=== PATIENT | female | born 1950 | race African-American/Black ===

== ENCOUNTER 2017-05-11 10:29 | Observation (INO) | payer MEDICARE, BC ==
[~2017-05-11] VITALS: Ht 167.6 cm; Wt 62.2 kg
[~2017-05-11 10:29] MED LIST: ALLBUTEROL; CARI-277 PO; HYDR-1421
[2017-05-11 11:06] LABS: Basophils # (auto) 0.1 uL; Basophils % (auto) 1.1 % (0.0-2.0); Eosinophils # (auto) 0 uL; Neutrophils # (auto) 4.3 uL
[2017-05-11 11:07] LABS: Hemoglobin 8.5 g/dL (12.2-16.2); Lymphocytes # (auto) 1.7 uL; Lymphocytes % (auto) 25.7 % (10.0-50.0); Mean Corpuscular Hemoglobin 24.7 pg (28.0-32.0); Mean Corpuscular Hgb Conc. 30.3 g/dL (32.0-36.0); Mean Corpuscular Volume 81.4 fL (80.0-100.0); Monocytes # (auto) 0.5 uL; Monocytes % (auto) 8.1 % (0.0-12.0); Neutrophils % (auto) 65.1 % (37.0-80.0); Nucleated Red Blood Cells % 0.2 %; Platelet Count (auto) 512 10^3/uL (140-450); Red Blood Cells 3.44 10^6/uL (4.0-5.20); White Blood Cell 6.6 10^3/uL (4.4-10.8)
[2017-05-11 11:19] LABS: Urine Bacteria FEW /hpf (None Seen); Urine Blood Negative /uL (Negative); Urine Mucus FEW (None Seen); Urine Specific Gravity 1.026 (1.001-1.035); Urine WBC 2 /hpf (0 - 5)
[2017-05-11 11:26] LABS: Albumin 3.8 g/dL (3.4-5.0); BUN/Creatinine Ratio 16.7; Bilirubin, Total 0.2 mg/dL (0.2-1.0); Calcium 8.6 mg/dL (8.5-10.1); Potassium 3.5 mmol/L (3.5-5.1); Total Protein 7.7 g/dL (6.4-8.2)
[2017-05-11] MEDS ORDERED: HYDROcodone-ACET 10/325MG TAB PO ONE (13:45)
[2017-05-11] MEDS ORDERED: SODIUM CHLORIDE 0.9% 1,000 ML IVB ONE (14:23)
[2017-05-11] MEDS ORDERED: cefTRIAXone 1GM/10ml IVPUSH 10 ML IV ONE (14:30)
[2017-05-11 15:02] LABS: INR 1.04 (0.9-1.15); Partial Thromboplastin Time 23.8 sec (22.64-33.71); Prothrombin Time 11.3 sec (9.37-12.3)
[2017-05-11 16:26] VITALS: BP 144/79
== END 2017-05-11 17:12 | disposition home or self-care (01) | DRG 812 ==
LOC: ER 10:29 → OVERFLOW 14:24 → ER 17:03
PROVIDERS: ADMIT Family Medicine; ATTEND Family Medicine
DX: D64.9 Anemia, unspecified (principal); M54.5 Low back pain; N39.0 Urinary tract infection, site not specified; Z90.49 Acquired absence of other specified parts of digestive tract
CPT/HCPCS: 36415; 71046; 80053; 81001; 83735; 85018; 85025; 85610; 85730; 86850; 86900; 86901; 93005; 96361; 96374; 99285; G0378; J7030

== ENCOUNTER 2020-04-03 14:56 | Inpatient (IN) | payer MEDICARE, OTHER ==
[~2020-04-03] VITALS: Ht 167.6 cm; Wt 64.4 kg
[2020-04-03] MEDS ORDERED: SODIUM CHLORIDE 0.9% 1,000 ML IVB ONE (16:00)
[2020-04-03 17:42] LABS: Basophils # (auto) 0 10 ^3/uL (0-0.2); Eosinophils # (auto) 0 10 ^3/uL (0-0.8); Hemoglobin 13.5 g/dL (12.2-16.2); Monocytes # (auto) 0.4 10 ^3/uL (0-1.3); Neutrophils # (auto) 4.2 10 ^3/uL (1.6-8.6)
[2020-04-03 17:44] LABS: Basophils % (auto) 0.5 % (0.0-2.0); Hematocrit 38.8 % (36.0-46.0); Lymphocytes % (auto) 17.3 % (10.0-50.0); Mean Corpuscular Hemoglobin 35.8 pg (28.0-32.0); Mean Corpuscular Hgb Conc. 34.7 g/dL (32.0-36.0); Mean Corpuscular Volume 103.1 fL (80.0-100.0); Monocytes % (auto) 6.6 % (0.0-12.0); Neutrophils % (auto) 75.6 % (37.0-80.0); Nucleated Red Blood Cells % 0.3 %; Platelet Count (auto) 515 10^3/uL (140-450); Red Blood Cells 3.77 10^6/uL (4.0-5.20); Red Cell Distribution Width 14.5 % (11.8-14.3); White Blood Cell 5.6 10^3/uL (4.4-10.8)
[2020-04-03 17:54] LABS: INR 1.08 (0.9-1.15); Partial Thromboplastin Time 27.8 sec (23.0-31.2)
[2020-04-03 18:11] LABS: Albumin 3.4 g/dL (3.4-5.0); Calcium 8.6 mg/dL (8.5-10.1); Magnesium 2.4 mg/dL (1.6-2.6); Potassium 3.8 mmol/L (3.5-5.1)
[2020-04-03 18:14] LABS: BUN/Creatinine Ratio 13.6; Bilirubin, Total 0.4 mg/dL (0.2-1.0); Total Protein 8.3 g/dL (6.4-8.2)
[2020-04-03] MEDS ORDERED: ACETAMINOPHEN 325 MG TAB PO ONE (20:15)
[2020-04-03] MEDS ORDERED: PIPERACILLIN-TAZOB 3.375GM 100 ML IV ONE (20:45)
[2020-04-03] MEDS ORDERED: VANCOMYCIN 1GM/250ML 250 ML IV ONE (20:45)
[2020-04-03] MEDS ORDERED: HYDROcodone-ACET 10/325MG TAB PO ONE (22:00)
[2020-04-03] MEDS: D5W/SOD CHL 0.45% 1,000 ML IV SCH (22:45)
[2020-04-03] MEDS ORDERED: NITROGLYCERIN 0.4 MG SL TAB SL PRN (22:45)
[2020-04-03] MEDS ORDERED: MORPHINE SULF INJ 2 MG/ML SYRINGE 1ML IV PRN (22:45)
[2020-04-03] MEDS ORDERED: HYDROcodone-ACET 5/325MG TAB PO PRN (22:45)
[2020-04-03] MEDS ORDERED: DOCUSATE SOD 100 MG CAP PO PRN (22:45)
[2020-04-03] MEDS ORDERED: ONDANSETRON HCL 4 MG/2 ML VIAL IV PRN (22:45)
[2020-04-03] MEDS ORDERED: ACETAMINOPHEN 325 MG TAB PO PRN (22:45)
[2020-04-04] VITALS (7 sets, daily range): BP systolic 109–130; BP diastolic 68–83
[2020-04-04] MEDS ORDERED: PIPERACILLIN-TAZOB 3.375GM 100 ML IV SCH (06:00)
[2020-04-04 08:05] LABS: Basophils # (auto) 0 10 ^3/uL (0-0.2); Basophils % (auto) 0.1 % (0.0-2.0); Eosinophils # (auto) 0 10 ^3/uL (0-0.8); Lymphocytes % (auto) 19.8 % (10.0-50.0); Mean Corpuscular Hgb Conc. 34.2 g/dL (32.0-36.0); Monocytes # (auto) 0.5 10 ^3/uL (0-1.3); Nucleated Red Blood Cells % 0.2 %
[2020-04-04 08:07] LABS: Hematocrit 35.1 % (36.0-46.0); Mean Corpuscular Hemoglobin 35.4 pg (28.0-32.0); Mean Corpuscular Volume 103.6 fL (80.0-100.0); Monocytes % (auto) 9.8 % (0.0-12.0); Neutrophils # (auto) 3.7 10 ^3/uL (1.6-8.6); Neutrophils % (auto) 70.3 % (37.0-80.0); Platelet Count (auto) 534 10^3/uL (140-450); Red Blood Cells 3.39 10^6/uL (4.0-5.20); Red Cell Distribution Width 14.2 % (11.8-14.3); White Blood Cell 5.2 10^3/uL (4.4-10.8)
[2020-04-04 08:19] LABS: Albumin 3.1 g/dL (3.4-5.0); Calcium 8.3 mg/dL (8.5-10.1)
[2020-04-04 08:22] LABS: Bilirubin, Total 0.5 mg/dL (0.2-1.0); Total Protein 7.4 g/dL (6.4-8.2)
[2020-04-04] MEDS: MULTIPLE VITAMIN TAB PO SCH (09:20)
[2020-04-04] MEDS: ZINC SULFATE 220mg CAP or TAB PO SCH (09:20)
[2020-04-04] MEDS: ASCORBIC ACID 500 MG TAB PO SCH ×2 (09:21→21:42)
[2020-04-04] MEDS: CHOLECALCIFEROL (VITD3) 1,000UNIT=25mCg TAB PO SCH (09:21)
[2020-04-04] MEDS: FAMOTIDINE (10MG/ML) 2ML VL IV SCH ×2 (10:25→21:42)
[2020-04-04] MEDS: HEPARIN SODIUM (PORCINE) 5000 UNITS/ML 1ML VIAL SC SCH ×2 (10:26→21:44)
[2020-04-04] MEDS: AZITHROMYCIN 500MG/ 250ML 250 ML IV SCH (10:26)
[2020-04-04] MEDS ORDERED: CARISOPRODOL 350 MG TAB PO PRN (11:45)
[2020-04-04] MEDS: D5W/SOD CHL 0.45% 1,000 ML IV SCH (12:22)
[2020-04-04] MEDS: GABAPENTIN 300 MG CAP PO SCH ×2 (14:00→21:42)
[2020-04-04] MEDS: metroNIDAZOLE 500MG/100ML 100 ML IV SCH ×2 (14:05→21:42)
[2020-04-04] MEDS: PIPERACILLIN-TAZOB 3.375GM 100 ML IV SCH ×2 (14:52→23:35)
[2020-04-04] MEDS: DexAMETHasone SOD PHOS 10MG/1ML VIAL INJ IV SCH (17:41)
[2020-04-04] MEDS ORDERED: ALBUTEROL SULF HFA 90MCG INH 200DOSE IN SCH (18:00)
[2020-04-04] MEDS: ALBUTEROL SULF HFA 90MCG INH 200DOSE IN SCH (18:01)
[2020-04-04] MEDS: BUDESONIDE (INHALATION) 180 MCG IH IN SCH (18:01)
[2020-04-04] MEDS: HYDROcodone-ACET 5/325MG TAB PO PRN (21:42)
[2020-04-05] MEDS: D5W/SOD CHL 0.45% 1,000 ML IV SCH ×2 (01:25→19:30)
[2020-04-05 05:00] VITALS: BP 110/58
[2020-04-05] MEDS: GABAPENTIN 300 MG CAP PO SCH ×3 (06:11→23:11)
[2020-04-05] MEDS: metroNIDAZOLE 500MG/100ML 100 ML IV SCH ×3 (06:11→23:10)
[2020-04-05] MEDS: PIPERACILLIN-TAZOB 3.375GM 100 ML IV SCH ×2 (06:32→16:00)
[2020-04-05] MEDS: BUDESONIDE (INHALATION) 180 MCG IH IN SCH ×2 (06:55→19:36)
[2020-04-05] MEDS: ALBUTEROL SULF HFA 90MCG INH 200DOSE IN SCH ×3 (06:55→19:36)
[2020-04-05] MEDS: HYDROcodone-ACET 5/325MG TAB PO PRN ×5 (07:02→23:38)
[2020-04-05 07:13] LABS: Albumin 2.8 g/dL (3.4-5.0); Bilirubin, Direct 0.2 mg/dL (0-0.2)
[2020-04-05 07:17] LABS: Bilirubin, Total 0.5 mg/dL (0.2-1.0); Total Protein 7.2 g/dL (6.4-8.2)
[2020-04-05 09:00] VITALS: BP 105/70
[2020-04-05] MEDS: AZITHROMYCIN 500MG/ 250ML 250 ML IV SCH (09:56)
[2020-04-05] MEDS: MULTIPLE VITAMIN TAB PO SCH (09:56)
[2020-04-05] MEDS: ASCORBIC ACID 500 MG TAB PO SCH ×2 (09:56→23:12)
[2020-04-05] MEDS: FAMOTIDINE (10MG/ML) 2ML VL IV SCH ×2 (09:56→23:11)
[2020-04-05] MEDS: ZINC SULFATE 220mg CAP or TAB PO SCH (09:56)
[2020-04-05] MEDS: CHOLECALCIFEROL (VITD3) 1,000UNIT=25mCg TAB PO SCH (09:57)
[2020-04-05] MEDS: HEPARIN SODIUM (PORCINE) 5000 UNITS/ML 1ML VIAL SC SCH ×2 (09:58→23:12)
[2020-04-05] MEDS: DexAMETHasone SOD PHOS 10MG/1ML VIAL INJ IV SCH (10:52)
[2020-04-05 13:00] VITALS: BP 98/64
[2020-04-05 16:44] VITALS: BP 98/62
[2020-04-05 20:26] LABS: Urine Bacteria NONE SEEN /hpf (None Seen); Urine Blood TRACE /uL (Negative); Urine Specific Gravity 1.009 (1.001-1.035); Urine WBC 2 /hpf (0 - 5)
[2020-04-05 22:15] VITALS: BP 99/61
[2020-04-06] MEDS: PIPERACILLIN-TAZOB 3.375GM 100 ML IV SCH ×2 (02:11→06:23)
[2020-04-06 05:00] VITALS: BP 127/82
[2020-04-06] MEDS: metroNIDAZOLE 500MG/100ML 100 ML IV SCH ×3 (05:06→21:52)
[2020-04-06] MEDS: GABAPENTIN 300 MG CAP PO SCH ×3 (06:22→21:52)
[2020-04-06] MEDS: HYDROcodone-ACET 5/325MG TAB PO PRN ×4 (06:59→21:53)
[2020-04-06 07:30] LABS: Bilirubin, Direct 0.2 mg/dL (0-0.2)
[2020-04-06 07:33] LABS: Bilirubin, Total 0.6 mg/dL (0.2-1.0); Total Protein 7.5 g/dL (6.4-8.2)
[2020-04-06] MEDS: ALBUTEROL SULF HFA 90MCG INH 200DOSE IN SCH ×2 (07:46→18:43)
[2020-04-06] MEDS: BUDESONIDE (INHALATION) 180 MCG IH IN SCH ×2 (07:47→18:43)
[2020-04-06] MEDS: D5W/SOD CHL 0.45% 1,000 ML IV SCH ×2 (08:00→17:25)
[2020-04-06 08:40] VITALS: BP 121/75
[2020-04-06] MEDS: cefTRIAXone 1GM/50ML D5W 50 ML IV SCH (09:11)
[2020-04-06] MEDS: DexAMETHasone SOD PHOS 10MG/1ML VIAL INJ IV SCH (09:13)
[2020-04-06] MEDS: FAMOTIDINE (10MG/ML) 2ML VL IV SCH ×2 (09:13→21:52)
[2020-04-06] MEDS: ASCORBIC ACID 500 MG TAB PO SCH ×2 (09:14→21:52)
[2020-04-06] MEDS: MULTIPLE VITAMIN TAB PO SCH (09:14)
[2020-04-06] MEDS: ZINC SULFATE 220mg CAP or TAB PO SCH (09:14)
[2020-04-06] MEDS: CHOLECALCIFEROL (VITD3) 1,000UNIT=25mCg TAB PO SCH (09:15)
[2020-04-06] MEDS: AZITHROMYCIN 250 MG TAB PO SCH (09:15)
[2020-04-06] MEDS: HEPARIN SODIUM (PORCINE) 5000 UNITS/ML 1ML VIAL SC SCH ×2 (09:16→21:51)
[2020-04-06] MEDS ORDERED: DIPHENOXYLATE W/ATROPINE 2.5 MG TAB PO PRN (12:45)
[2020-04-06] MEDS ORDERED: DIPHENOXYLATE W/ATROPINE 2.5 MG TAB PO ONE (12:45)
[2020-04-06 12:56] VITALS: BP 134/79
[2020-04-06] MEDS: LOPERAMIDE HCL 2 MG CAP PO SCH (14:55)
[2020-04-06 16:38] VITALS: BP 128/80
[2020-04-06 22:00] VITALS: BP 114/73
[2020-04-07] MEDS: HYDROcodone-ACET 5/325MG TAB PO PRN ×5 (02:09→20:23)
[2020-04-07 05:00] VITALS: BP 103/67
[2020-04-07] MEDS: GABAPENTIN 300 MG CAP PO SCH ×3 (06:29→22:18)
[2020-04-07] MEDS: metroNIDAZOLE 500MG/100ML 100 ML IV SCH ×3 (06:29→22:22)
[2020-04-07] MEDS: ALBUTEROL SULF HFA 90MCG INH 200DOSE IN SCH ×3 (07:00→20:27)
[2020-04-07] MEDS: BUDESONIDE (INHALATION) 180 MCG IH IN SCH ×2 (07:00→20:27)
[2020-04-07 09:00] VITALS: BP 119/70
[2020-04-07] MEDS: cefTRIAXone 1GM/50ML D5W 50 ML IV SCH (09:16)
[2020-04-07] MEDS: FAMOTIDINE (10MG/ML) 2ML VL IV SCH ×2 (09:16→22:19)
[2020-04-07] MEDS: DexAMETHasone SOD PHOS 10MG/1ML VIAL INJ IV SCH (09:16)
[2020-04-07] MEDS: ZINC SULFATE 220mg CAP or TAB PO SCH (09:17)
[2020-04-07] MEDS: MULTIPLE VITAMIN TAB PO SCH (09:17)
[2020-04-07] MEDS: LOPERAMIDE HCL 2 MG CAP PO SCH (09:17)
[2020-04-07] MEDS: CHOLECALCIFEROL (VITD3) 1,000UNIT=25mCg TAB PO SCH (09:18)
[2020-04-07] MEDS: AZITHROMYCIN 250 MG TAB PO SCH (09:18)
[2020-04-07] MEDS: ASCORBIC ACID 500 MG TAB PO SCH ×2 (09:18→22:18)
[2020-04-07] MEDS: HEPARIN SODIUM (PORCINE) 5000 UNITS/ML 1ML VIAL SC SCH ×2 (09:19→22:20)
[2020-04-07] MEDS: D5W/SOD CHL 0.45% 1,000 ML IV SCH ×2 (12:03→20:05)
[2020-04-07 13:00] VITALS: BP 124/81
[2020-04-07 17:00] VITALS: BP 124/72
[2020-04-07 22:00] VITALS: BP 103/60
[2020-04-08] VITALS (7 sets, daily range): BP systolic 110–136; BP diastolic 72–97
[2020-04-08] MEDS: metroNIDAZOLE 500MG/100ML 100 ML IV SCH ×3 (06:09→22:00)
[2020-04-08] MEDS: GABAPENTIN 300 MG CAP PO SCH ×3 (06:09→21:59)
[2020-04-08] MEDS: ALBUTEROL SULF HFA 90MCG INH 200DOSE IN SCH ×3 (06:30→19:04)
[2020-04-08] MEDS: BUDESONIDE (INHALATION) 180 MCG IH IN SCH ×2 (06:30→19:05)
[2020-04-08] MEDS: HYDROcodone-ACET 5/325MG TAB PO PRN ×4 (06:43→22:00)
[2020-04-08] MEDS: D5W/SOD CHL 0.45% 1,000 ML IV SCH ×2 (09:37→22:45)
[2020-04-08] MEDS: cefTRIAXone 1GM/50ML D5W 50 ML IV SCH (09:37)
[2020-04-08] MEDS: DexAMETHasone SOD PHOS 10MG/1ML VIAL INJ IV SCH (09:37)
[2020-04-08] MEDS: ZINC SULFATE 220mg CAP or TAB PO SCH (09:38)
[2020-04-08] MEDS: CHOLECALCIFEROL (VITD3) 1,000UNIT=25mCg TAB PO SCH (09:38)
[2020-04-08] MEDS: FAMOTIDINE (10MG/ML) 2ML VL IV SCH ×2 (09:38→21:59)
[2020-04-08] MEDS: MULTIPLE VITAMIN TAB PO SCH (09:38)
[2020-04-08] MEDS: LOPERAMIDE HCL 2 MG CAP PO SCH (09:38)
[2020-04-08] MEDS: ASCORBIC ACID 500 MG TAB PO SCH ×2 (09:38→21:59)
[2020-04-08] MEDS: HEPARIN SODIUM (PORCINE) 5000 UNITS/ML 1ML VIAL SC SCH ×2 (09:39→22:04)
[2020-04-08] MEDS: AZITHROMYCIN 250 MG TAB PO SCH (09:39)
[2020-04-09 05:00] VITALS: BP 108/77
[2020-04-09] MEDS: metroNIDAZOLE 500MG/100ML 100 ML IV SCH (05:52)
[2020-04-09] MEDS: GABAPENTIN 300 MG CAP PO SCH (05:52)
[2020-04-09] MEDS: HYDROcodone-ACET 5/325MG TAB PO PRN (06:18)
[2020-04-09] MEDS: D5W/SOD CHL 0.45% 1,000 ML IV SCH (06:22)
[2020-04-09] MEDS ORDERED: ALBU108A5 IN (06:58)
[2020-04-09] MEDS ORDERED: HYDR-4072 PO (07:01)
[2020-04-09] MEDS ORDERED: CARI-277 PO (07:01)
[2020-04-09] MEDS: ALBUTEROL SULF HFA 90MCG INH 200DOSE IN SCH (07:53)
[2020-04-09] MEDS: BUDESONIDE (INHALATION) 180 MCG IH IN SCH (07:54)
[2020-04-09 09:00] VITALS: BP 131/80
[2020-04-09] MEDS: cefTRIAXone 1GM/50ML D5W 50 ML IV SCH (09:00)
== END 2020-04-09 09:40 | disposition home or self-care (01) | DRG 177 ==
LOC: ER 14:56 → EDBD 14:56 → TELE 14:57 → TELE-EAST 04-04 08:35
PROVIDERS: ADMIT Nurse Practitioner Family; ATTEND Family Medicine
DX: U07.1 COVID-19 (principal); J12.82 Pneumonia due to coronavirus disease 2019; K51.00 Ulcerative (chronic) pancolitis without complications; G89.29 Other chronic pain; R06.03 Acute respiratory distress; J45.909 Unspecified asthma, uncomplicated; M54.9 Dorsalgia, unspecified; D47.3 Essential (hemorrhagic) thrombocythemia; R09.02 Hypoxemia; R79.89 Other specified abnormal findings of blood chemistry; Z90.49 Acquired absence of other specified parts of digestive tract
CPT/HCPCS: 36415; 36600; 71045; 74176; 76705; 80053; 80076; 81001; 82140; 82805; 82962; 83605; 83690; 83735; 85025; 85610; 85730; 87040; 87045; 87077; 87086; 87088; 87186; 87426; 87427; 87493; 93005; 94640; 96361; 96365; 96366; 96367; G0378; J0696; J1100; J2405; J2543; J3490

== ENCOUNTER 2022-06-29 22:50 | Emergency (ER) | payer MEDICARE, OTHER, SELFPAY ==
[~2022-06-29] VITALS: Ht 152.4 cm; Wt 50.0 kg
[~2022-06-29 22:50] MED LIST changes: +ALBU108A5 IN; -ALLBUTEROL; -HYDR-1421; +HYDR-4072 PO
[2022-06-29 23:41] LABS: Urine Bacteria NONE SEEN /hpf (None Seen); Urine Blood TRACE /uL (Negative); Urine Hyaline Cast FEW /lpf (0 - 2); Urine Specific Gravity 1.009 (1.001-1.035); Urine WBC 2 /hpf (0 - 5)
[2022-06-29 23:57] LABS: Alcohol, Urine < 3.0 mg/dL (0-10); Amphetamine Screen, Urine NEGATIVE (NEGATIVE); Barbiturate Scree,Urine NEGATIVE (NEGATIVE); Cannabinoid Screen, Urine NEGATIVE (NEGATIVE); Cocaine Screen, Urine NEGATIVE (NEGATIVE); Opiate Scree,Urine POSITIVE (NEGATIVE); Phencyclidine Screen, Urine NEGATIVE (NEGATIVE)
[2022-06-29 23:57] LABS: Basophils # (auto) 0.1 10 ^3/uL (0-0.2); Basophils % (auto) 1.2 % (0.0-2.0); Eosinophils # (auto) 0 10 ^3/uL (0-0.8); Hematocrit 38.9 % (36.0-46.0); Hemoglobin 12.8 g/dL (12.2-16.2); Lymphocytes # (auto) 1.4 10 ^3/uL (0.4-5.4); Lymphocytes % (auto) 27.4 % (10.0-50.0); Mean Corpuscular Hgb Conc. 32.9 g/dL (32.0-36.0); Mean Corpuscular Volume 100.2 fL (80.0-100.0); Monocytes # (auto) 0.4 10 ^3/uL (0-1.3); Neutrophils # (auto) 3.2 10 ^3/uL (1.6-8.6); Neutrophils % (auto) 64.4 % (37.0-80.0); Nucleated Red Blood Cells % 0.3 %; Red Blood Cells 3.88 10^6/uL (4.0-5.20); White Blood Cell 5.1 10^3/uL (4.4-10.8)
[2022-06-30 00:04] LABS: Benzodiazephine Screen, Urine NEGATIVE (NEGATIVE)
[2022-06-30 00:16] LABS: Albumin 3.3 g/dL (3.4-5.0); BUN/Creatinine Ratio 7.9 (10.0-20.0); Calcium 9.8 mg/dL (8.5-10.1); Potassium 4.8 mmol/L (3.5-5.1)
[2022-06-30 00:18] LABS: Bilirubin, Total 0.8 mg/dL (0.2-1.0); Total Protein 7.1 g/dL (6.4-8.2)
[2022-06-30 00:26] LABS: Red Cell Distribution Width 22.5 % (11.8-14.3)
[2022-06-30] MEDS ORDERED: DEXTROSE 10% 250 ML IV ONE ×2 (03:45→03:47)
[2022-06-30] MEDS ORDERED: MORPHINE SULFATE 4 MG/ML SYR/VIAL IV ONE (04:15)
[2022-06-30] MEDS ORDERED: ONDANSETRON HCL 4 MG/2 ML VIAL IV ONE (04:15)
[2022-06-30] MEDS ORDERED: D5W/SOD CHL 0.45% 1,000 ML IV ONE (04:15)
[2022-06-30 07:27] VITALS: BP 128/88
== END 2022-06-30 07:36 | disposition short-term general hospital (02) ==
LOC: EDBD 22:50 → ER 22:50
DX: E16.2 Hypoglycemia, unspecified (principal); E87.1 Hypo-osmolality and hyponatremia; E88.09 Other disorders of plasma-protein metabolism, not elsewhere classified; D75.89 Other specified diseases of blood and blood-forming organs; J45.909 Unspecified asthma, uncomplicated; Z86.2 Personal history of diseases of the blood and blood-forming organs and certain disorders involving the immune mechanism; Z90.49 Acquired absence of other specified parts of digestive tract
CPT/HCPCS: 36415; 71045; 80053; 80307; 81001; 82962; 83605; 83880; 84484; 85025; 93005; 96365; 96366; 96375; 99285; J2270; J2405